=== PATIENT | female | born 1965 | race Caucasian/White ===

== ENCOUNTER 2020-02-22 07:52 | Outpatient (CLI) | payer MEDICARE, SELFPAY ==
[2020-02-22 19:18] LABS: SARS-CoV-2 RNA PCR Negative
== END 2020-02-22 07:53 | disposition home or self-care (01) ==
LOC: ANHCOVIDDT 07:53
PROVIDERS: Visit Provider Internal Medicine Gastroenterology
DX: Z01.818 Encounter for other preprocedural examination (principal); Z11.59 Encounter for screening for other viral diseases
CPT/HCPCS: 87635; C9803; U0003

== ENCOUNTER 2020-02-24 01:38 | Day surgery (SDC) | payer MEDICARE, SELFPAY ==
[2020-02-21 15:09] VITALS: BMI 35.6
--- NOTE | 2020-02-24 07:41 | WPDANESEPPF ---
Anes - Initial Pre Proc Eval Procedure: Operation Date: 02/24/20 10:30 Proposed Procedures p Esophagogastroduodenoscopy - Adan Banda MD Date/Time: 02/24/20 07:41 Surgeon: Adan Banda MD Pre Op Diagnosis: nausea, vomiting, weight loss Patient Data Age: 55 Gender: F Height: 1.68 m Weight: 100 kg Allergies Allergy/AdvReac Type Severity Reaction Status Date / Time No Known Allergies Allergy Verified 02/21/20 15:01 Home Medications Medication Instructions Recorded Confirmed Type methylphenidate HCl 20 mg tablet 20 mg PO DAILY 02/03/20 02/21/20 History omeprazole 20 mg tablet,delayed 20 mg PO DAILY #30 tablet 02/03/20 02/21/20 Rx release ziprasidone HCl 80 mg capsule 80 mg PO BID 02/03/20 02/21/20 History lisinopril 20 mg PO DAILY 02/21/20 02/21/20 History sertraline [Zoloft] 100 mg PO DAILY 02/21/20 02/21/20 History Patient hx anesthesia problems: none Family hx anesthesia problems: none PMFSH Past Medical History Medical History (Updated 02/24/20 @ 07:42 by Miguel Wayne MD) Anxiety Bipolar 1 disorder Colon cancer screening Depression Gastroesophageal reflux disease HTN (hypertension) Nausea and vomiting in adult Obesity Surgical History Surgical History (Updated 02/03/20 @ 13:40 by Adan Banda MD) History of gastric surgery Family History Family History (Updated 02/22/16 @ 23:19 by DOCTOR UNKNOWN) Father Family history of alcoholism Mother Family history of diabetes mellitus in first degree relative Family history of throat cancer Social History Social History Smoking status: Never smoker Anes - Eval Final PreProcedure Day of Procedure 02/24/20 07:41 Patient weight: obese Heart: regular rate and rhythm Lungs: clear to auscultation and normal air movement Airway: Mallampati scale class II Neurological: alert and oriented Last oral intake: >/= 8 hours ASA classification: III Emergent: no Anesthetic plan: proceed Anesthesia type and monitoring: general GIVS Informed Consent: The patient's anesthetic plan and its attendant risks and benefits were discussed with the patient/family/POA. Questions were solicited and answers provided to the satisfaction of the patient/family/POA.
[2020-02-24 09:22] VITALS: BP 138/86; PULSE 91; RESP 20; TEMP 36.9; O2SAT 98
[2020-02-24] MEDS: LACTATED RINGERS 1,000 ML 150 ML IV CONT (09:32)
--- NOTE | 2020-02-24 10:14 | WPDHPUPDATE1 ---
History and Physical Update Update Date/Time: 02/24/20 10:14 History and Physical has been reviewed, including an updated exam of the patient. There are NO changes in the patient's condition. Risks, benefits, and alternatives have been discussed and questions answered. Patient agrees to proceed with procedure.
[2020-02-24 10:26] VITALS: BP 139/76; PULSE 73; RESP 18; O2SAT 99
[2020-02-24 10:36] VITALS: BP 127/82; PULSE 84; RESP 27; O2SAT 98
[2020-02-24 10:46] VITALS: BP 126/79; PULSE 83; RESP 26; O2SAT 100
== END 2020-02-24 11:05 | disposition home or self-care (01) ==
PROVIDERS: PCP Family Medicine Sports Medicine; Visit Provider Internal Medicine Gastroenterology
PROC: 0DJ08ZZ Inspection of Upper Intestinal Tract, Via Natural or Artificial Opening Endoscopic (ICD-10-PCS; CPT 43235; principal; 2020-02-24 10:30)
DX: R11.2 Nausea with vomiting, unspecified (principal); Z98.84 Bariatric surgery status; I10 Essential (primary) hypertension; K21.9 Gastro-esophageal reflux disease without esophagitis; E66.9 Obesity, unspecified; Z68.37 Body mass index [BMI] 37.0-37.9, adult; F41.9 Anxiety disorder, unspecified; F31.9 Bipolar disorder, unspecified
CPT/HCPCS: 43239; 88305; J2250; J2704; J7120